=== PATIENT | male | born 1995 | race Two or more races ===

== ENCOUNTER → 2019-10-06 | Emergency (ER) | payer BC, OTHER ==
[~2019-10-06] VITALS: Ht 167.6 cm; Wt 87.1 kg
[~2019-10-06] MED LIST: IBUPROFEN 800 MG TAB PO ONE
[2019-10-06 14:47] VITALS: BP 119/73
== END | disposition home or self-care (01) ==
LOC: ER 14:25
DX: S90.31XA Contusion of right foot, initial encounter (principal); X58.XXXA Exposure to other specified factors, initial encounter; Y93.89 Activity, other specified; Y92.89 Other specified places as the place of occurrence of the external cause; Y99.8 Other external cause status
CPT/HCPCS: 73630